=== PATIENT | male | born 1990 | race African-American/Black ===

== ENCOUNTER 2017-07-16 20:59 | Emergency (ER) | payer SELFPAY ==
[2017-07-16 21:38] LABS: Hematocrit 44.1 % (42.0-52.0); Mean Platelet Volume 7.8 fL (7.4-10.4); White Blood Cell (WBC) Count 7.6 thou/uL (4.8-10.8)
[2017-07-16 21:57] LABS: Acetaminophen Less than 6.0 mcg/mL (10.0-30.0); Anion Gap 11 mmol/L (10-20); BUN (Urea Nitrogen) 11 mg/dL (8.9-20.6); CK (CPK) 228 U/L (30-200); Calc. Creatinine Clearance 0 mL/min (70-130); Calcium 7.5 mg/dL (7.8-10.44); Carbon Dioxide 21 mmol/L (22-29); Chloride 114 mmol/L (98-107); Estimated GFR-MDRD Greater than 90; Salicylate Less than 8.0 mg/dL (15.0-30.0)
[2017-07-16 22:00] LABS: Neutrophil 47 % (42-75); Reactive Lymphocytes 2 % (0-10)
[2017-07-16 22:19] LABS: Amphetamine Not Detected (NotDetected); Methadone Not Detected (NotDetected); Methamphetamine Not Detected (NotDetected)
--- NOTE | 2017-07-16 22:32 | CT ---
EXAM: NONCONTRAST HEAD CT 07/16/17 HISTORY: Altered mental status. Patient fell backwards from porch. COMPARISON: 06/26/09. TECHNIQUE: Noncontrast head CT is performed from skull base to skull vertex. FINDINGS: No parenchymal hemorrhage. No extra-axial hematoma. No midline shift. Basilar cisterns are patent. B rain volume, age appropriate. Cortical cook-white matter differentiation is preserved. Ventricle and sulci are patent and symmetric. Stable calcifications in the left cerebellar hemisphere. Calvarium is intact. Adequate aeration of the sinuses and mastoid air cells. IMPRESSION: No intracranial posttraumatic sequela. POS: [facility]
[2017-07-16] MEDS ORDERED: Potassium Chloride 20 MEQ TAB ONE (22:40)
[2017-07-16] MEDS ORDERED: Acetaminophen 500 MG TAB ONE (22:41)
--- NOTE | 2017-07-16 23:12 | CT ---
EXAM: CERVICAL SPINE CT WITHOUT CONTRAST 07/16/17 HISTORY: A chair leg broke. Patient fell backwards hitting head on wood. Posttraumatic pain. COMPARISON: 06/26/09. TECHNIQUE: Cervical spine CT is performed without contrast. Reformatted images are submitted for interpretation . FINDINGS: Soft tissue neck structures are unremarkable. No prevertebral soft tissues swelling. No epidural hem atoma. There is asymmetric fullness of the right thyroid gland, incompletely evaluated. Thyroid ultr asound can be performed on a nonemergent basis. Lung apices are unremarkable. There are varying degr ees of central canal stenosis and foraminal narrowing on the basis of degenerative change. Coronal reformatted images demonstrate appropriate alignment in the lateral masses of C1 and C2 as w ell as the intra-articular facets. Odontoid process is intact. Sagittal reformatted images demonstrate straightening of the normal cervical lordosis likely due to patient position, muscle space or cervical collar. There is appropriate alignment of the intra-artic ular facets. Spinous processes appear to be intact. Cervical spine vertebral body height is maintained. There is no fracture. IMPRESSION: 1. No fracture. 2. Asymmetric fullness of the right thyroid lobe. Nonemergent thyroid ultrasound. POS: [facility]
== END 2017-07-16 23:57 | disposition home or self-care (01) ==
LOC: ERS 20:59
DX: S09.90XA Unspecified injury of head, initial encounter (principal); E87.6 Hypokalemia; F31.9 Bipolar disorder, unspecified; F90.9 Attention-deficit hyperactivity disorder, unspecified type; F17.210 Nicotine dependence, cigarettes, uncomplicated; W07.XXXA Fall from chair, initial encounter
CPT/HCPCS: 70450; 72125; 80048; 80306; 80307; 82550; 85025; 96360

== ENCOUNTER 2017-11-04 10:08 | Emergency (ER) | payer SELFPAY ==
[2017-11-04] MEDS ORDERED: Ketorolac Tromethamine 30 MG/ML VIAL ONE (11:15)
--- NOTE | 2017-11-04 12:08 | RAD ---
3 VIEWS LUMBAR SPINE: Date: 11/04/17 HISTORY: Low back pain after fall 3 days ago. FINDINGS: The vertebral body heights are within normal limits. There is minimal narrowing of the L5-S1 interver tebral disc space. There is no fracture or subluxation involving the lumbar spine. IMPRESSION: No acute osseous abnormality involving the lumbar spine. POS: [facility]
== END 2017-11-04 12:29 | disposition home or self-care (01) ==
LOC: ERS 10:08
DX: S30.0XXA Contusion of lower back and pelvis, initial encounter (principal); F17.210 Nicotine dependence, cigarettes, uncomplicated; F31.9 Bipolar disorder, unspecified; F90.9 Attention-deficit hyperactivity disorder, unspecified type; Y04.2XXA Assault by strike against or bumped into by another person, initial encounter; Y93.67 Activity, basketball
CPT/HCPCS: 72100; 96372; J1885